=== PATIENT | female | born 1955 | race Two or more races ===

== ENCOUNTER 2018-03-15 14:07 | Outpatient (CLI) | payer MEDICARE, MEDICAID | END 2018-03-15 23:59 | disposition home or self-care (01) | LOC: LAB 14:07 | PROVIDERS: ATTEND Internal Medicine Hematology & Oncology | DX: C79.51 Secondary malignant neoplasm of bone (principal); C34.90 Malignant neoplasm of unspecified part of unspecified bronchus or lung | CPT/HCPCS: C1751 ==